=== PATIENT | male | born 2000 | race Caucasian/White ===

== ENCOUNTER 2022-07-26 19:07 | Emergency (ER) | payer BC, SELFPAY ==
--- NOTE | 2022-07-26 19:10 | ED.EXTPRO ---
HPI - Extremity Problem General Chief complaint: Extremity Problem,Nontraumatic Stated complaint: right hand middle finger swollen Time Seen by Provider: 07/26/22 19:10 Source: patient Mode of arrival: ambulatory Limitations: no limitations History of Present Illness HPI Narrative: Mr. Clarke is a 21-year-old male patient presenting to the clinic today with complaints of right third finger swelling x3 to 4 days. He reports no known obvious injury to the finger. Reports he woke up 1 morning with his finger joints swollen. He reports some discomfort with flexion and extension of the finger. Denies any wounds to the finger when this occurred Related Data Allergies Allergy/AdvReac Type Severity Reaction Status Date / Time No Known Allergies Allergy Verified 07/26/22 19:19 Review of Systems Review of Systems: Pertinent positives per HPI. Patient denies any fever, chills, rash, headache, visual changes, dizziness, cough, runny nose, sore throat, shortness of breath, chest pain, palpitations, nausea, vomiting, diarrhea, constipation, abdominal pain, or any urinary issues. PMFSH Comments At the time of my signature, I reviewed and agree with the nursing past medical, surgical, social, and family history. There is no relevant family history pertinent to the patient complaint. Exam Narrative: General: Well-developed, well nourished, in no apparent distress Head: Normocephalic, atraumatic. Cardio: Regular rate and rhythm, s1 and s2 normal, no murmur appreciated. Resp: Clear to auscultation bilaterally, no rhonchi, rales, wheezing or rubs. Musculoskeletal: No deformity, tender to palpation over the right third lateral and medial PIP joint, extension range of motion normal however he does have some loss of full flexion of the PIP joint, discomfort with flexion against resistance but no discomfort with extension against resistance, muscle strength strong and equal, peripheral pulse strong, no edema, no cyanosis, normal gait and station Course Course Emergency Course: Portions of this record may have been created with voice recognition software. Level of Care: Express Care Visit Vital Signs Vital signs: Vital signs reviewed MDM - Extremity (Nontraumatic) MDM Narrative Medical decision making narrative: At the time of visit patient was resting comfortably on the exam table. I suspect the patient has some ligament inflammation. I will give him a prescription for some naproxen as well as discussed treatment supportive measures with him. He voiced understanding of discharge instructions and agrees Differential Diagnosis Differential diagnosis: Likely other (swollen joint, ligament inflammation, finger fracture. ) Discharge Plan Discharge Clinical Impression: Finger joint swelling Patient Disposition: Home, Self-Care Condition: Stable Instructions: Antibiotic Form, Swollen Joint (ED) Additional Instructions: No sign of joint infection and no obvious injury to the joint. Rest, ice, and keep elevated Take Naproxen as prescribed. May take tylenol additionally for pain May soak finger in warm water/epsom salt. Keep finger range of motion active. Follow up with your PCP in 1 week if symptoms persist or sooner if they worsen. Prescriptions: New naproxen 500 mg tablet 500 mg PO BID PRN (Reason: pain) 7 Days Qty: 14 0RF Follow-up/Referrals: UNKNOWN,DOCTOR [Non-Staff] - Time of Disposition: 19:26 Quality NIHSS Nursing Documentation ED NIHSS nursing documentation: reviewed/agree
[2022-07-26 19:15] VITALS: BP 158/81; PULSE 59; RESP 16; TEMP 36.8; O2SAT 100
[2022-07-26 19:20] VITALS: BP 158/81; PULSE 59; RESP 16; TEMP 36.8; O2SAT 100
== END 2022-07-26 19:31 | disposition home or self-care (01) ==
PROVIDERS: Emergency Provider Nurse Practitioner Family
DX: M25.441 Effusion, right hand (principal)
CPT/HCPCS: 99203; G0463

== ENCOUNTER 2022-07-31 17:27 | Emergency (ER) | payer BC, SELFPAY ==
[2022-07-31 17:40] VITALS: BP 154/82; PULSE 97; RESP 16; TEMP 36.9; O2SAT 99
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
[2022-07-31] MEDS: TETANUS,DIPHTHERIA,AC PERTUSSIS ADULT (0.5 ML) BOOSTRIX IM (18:25)
== END 2022-07-31 19:28 | disposition home or self-care (01) ==
PROVIDERS: Emergency Provider Registered Nurse
DX: S01.81XA Laceration without foreign body of other part of head, initial encounter (principal); V86.35XA Unspecified occupant of 3- or 4- wheeled all-terrain vehicle (ATV) injured in traffic accident, initial encounter; Z23 Encounter for immunization
CPT/HCPCS: 12011; 90471; 90715; 99212; G0463